=== PATIENT | female | born 1960 | race Caucasian/White ===

== ENCOUNTER → 2022-01-28 15:01 | Outpatient (CLI) | payer BC, SELFPAY ==
--- NOTE | ~2022-01-28 | XR_ITS ---
EXAMINATION: XR foot LT 2V INDICATION: Left foot pain TECHNIQUE: Two views of the left foot are obtained. COMPARISON: None available FINDINGS: There is an 18 mm linear metallic foreign body in the plantar soft tissues of the foot proj ecting near the fourth metatarsophalangeal joint. There is no fracture. Bone alignment is normal. The re are plantar and posterior calcaneal enthesophytes. IMPRESSION: 1. Linear metallic foreign body in the plantar soft tissues of the foot adjacent to the fourth metata rsophalangeal joint. Reviewed, dictated and finalized at location A. IMPRESSION: 1. Linear metallic foreign body in the plantar soft tissues of the foot adjacen t to the fourth metatarsophalangeal joint.
== END ==
PROVIDERS: PCP Family Medicine; Visit Provider Family Medicine
DX: M79.672 Pain in left foot (principal); W45.8XXA Other foreign body or object entering through skin, initial encounter
CPT/HCPCS: 73620

== ENCOUNTER 2022-02-11 01:50 | Day surgery (SDC) | payer BC, SELFPAY ==
[2022-02-03 12:58] VITALS: BMI 27.1
--- NOTE | 2022-02-03 13:11 | PC.NURSE ---
Report to the Outpatient Waiting Room, entrance under the green pavilion located off [facility], at time 1000 on date 02/11/22. OR Time: 1200. Time changes happen often and if your time is changed the preop area will call you the afternoon before. - You and your visitor will be asked to self-screen and do not enter if you have any COVID symptoms. - Only one visitor and NO children visitors are allowed at this time. - The patient visitor is requested to leave or wait in car when not with patient due to restrictions. - A mask is required within the hospital. Patients may have clear liquids (water, carbonated beverages, clear teas, apple juice) until 3 hours prior to surgery with a maximum of 20 ounces. - No food from midnight until time of surgery Take the following medications with a SIP of water the morning of surgery: LEVOTHYROXINE Medications to discontinue per physician: N/A Date to take last dose: N/A Please no make-up, nail albanian, hairspray, perfume, deodorant, or body powder the day of surgery. No jewelry (including any body piercings) or valuables the day of surgery, leave them at home. Please take a shower or bath the night before, or the morning of, surgery with an antibacterial soap. Wear comfortable, loose fitting clothing. - Jewelry must be removed prior to entering the operating room. Rings and piercings that are not removed may be cut off. - The hospital will not accept responsibility for valuables. - Please leave all valuables, including medications, at home the day of surgery. If you are going home after surgery, a licensed otr owner operator truck driver must drive you home. - NO public transportation without another adult. - We recommend that an adult stay with you for 24 hours following discharge. - We also recommend that you do not drive, make important decision, drink alcoholic beverages, or take any drugs that were not prescribed by your health care provider for at least 24 hours after your discharge time. Follow any additional instructions given to you from your surgeon. If you or anyone in your household have experienced Covid symptoms in the past week, please notify your surgeon or the nurse liaison at the phone number below for possible testing. Telephone instructions given to PT - DEONDRE WALDRON and asked if any additional questions and then verbalized understanding. Patient advised to call surgeon office or pre surgery nurse liaison [phone] if any additional questions.
--- NOTE | 2022-02-10 13:45 | P.PNAN_ITS ---
Anes - Initial Pre Proc Eval Procedure: Operation Date: 02/11/22 07:30 Proposed Procedures p Removal Foreign Body Left Foot - Toney Lance JR, MD Date/Time: 02/10/22 13:45 Surgeon: Toney Lance JR, MD Pre Op Diagnosis: FB left foot Patient Data Age: 62 Gender: F Height: 1.57 m Weight: 67.13 kg Allergies Allergy/AdvReac Type Severity Reaction Status Date / Time No Known Allergies Allergy Mild Unverified 02/03/22 12:57 Home Medications Medication Instructions Recorded Confirmed Type omeprazole 20 mg tablet,delayed 20 mg PO DAILY 10/15/21 02/03/22 History release levothyroxine 88 mcg tablet 88 mcg PO DAILY 02/03/22 02/03/22 History (Euthyrox) Results Review: All pre-operative results and documents have been reviewed as part of the pre- operative evaluation. [facility] Past Medical History Medical History GERD (gastroesophageal reflux disease) History of lung cancer History of thyroid cancer Hypothyroidism Surgical History Surgical History (Updated 02/03/22 @ 08:27 by Javier Rodriguez MD) History of hysterectomy Status post partial lobectomy of lung partial RLL Social History Social History Smoking status: Never smoker Second hand tobacco smoke exposure: No Alcohol intake: never Substance use: never Substance use type: does not use Living arrangements: with family Gender identity (if verbalized by the patient): Female Spiritual care concerns: No Anes - Eval Final PreProcedure Day of Procedure 02/10/22 13:45 Results Review: All pre-operative results and documents have been reviewed as part of the pre- operative evaluation. Informed Consent: The patient's anesthetic plan and its attendant risks and benefits were discussed with the patient/family/POA. Questions were solicited and answers provided to the satisfaction of the patient/family/POA.
--- NOTE | ~2022-02-11 | XR_ITS ---
EXAMINATION: XR surgery orthopedic DATE: 02/11/2022 08:03 INDICATION: Foreign body removal from the left foot TECHNIQUE: 3 fluoroscopic images of the left foot were obtained during procedure performed by Dr. Sebastien obrien. Radiologist was not present for the imaging or procedure. The amount of fluoroscopy time used during this procedure was 0.1 minutes. COMPARISON: Left foot radiographs dated 01/28/2022 FINDINGS: Initial 2 images demonstrate a hemostat marking the site of a linear metallic foreign body in the sof t tissues plantar to the fourth metatarsophalangeal joint. Final image demonstrates removal of the fo reign body. Visualized bones are unremarkable with normal alignment, no fracture normal joint spaces. IMPRESSION: 1. Fluoroscopy utilized for removal of a metallic foreign body from the left forefoot. See procedure note for further detail. Reviewed, dictated and finalized at location B. IMPRESSION: 1. Fluoroscopy utilized for removal of a metallic foreign body from the left fo refoot. See procedure note for further detail.
[2022-02-11 06:24] VITALS: BP 148/79; PULSE 91; RESP 16; TEMP 36.7; O2SAT 98
--- NOTE | 2022-02-11 06:50 | WPDANESEPPF ---
Anes - Initial Pre Proc Eval Procedure: Operation Date: 02/11/22 07:30 Proposed Procedures p Removal Foreign Body Left Foot - Toney Lance JR, MD Date/Time: 02/11/22 06:50 Surgeon: Toney Lance JR, MD Pre Op Diagnosis: FB left foot Patient Data Age: 62 Gender: F Height: 1.57 m Weight: 67.13 kg Allergies Allergy/AdvReac Type Severity Reaction Status Date / Time No Known Allergies Allergy Mild Unverified 02/03/22 12:57 Home Medications Medication Instructions Recorded Confirmed Type omeprazole 20 mg tablet,delayed 20 mg PO DAILY 10/15/21 02/03/22 History release levothyroxine 88 mcg tablet 88 mcg PO DAILY 02/03/22 02/03/22 History (Euthyrox) Patient hx anesthesia problems: none Family hx anesthesia problems: none Results Review: All pre-operative results and documents have been reviewed as part of the pre-operative evaluation. [facility] Past Medical History Medical History GERD (gastroesophageal reflux disease) History of lung cancer History of thyroid cancer Hypothyroidism Surgical History Surgical History (Updated 02/11/22 @ 06:50 by Sathya Estrada MD) History of hysterectomy History of lumbar surgery Status post partial lobectomy of lung partial RLL Social History Social History Smoking status: Never smoker Second hand tobacco smoke exposure: No Alcohol intake: never Substance use: never Substance use type: does not use Living arrangements: with family Gender identity (if verbalized by the patient): Female Spiritual care concerns: No Anes - Eval Final PreProcedure Day of Procedure 02/11/22 06:50 Patient weight: overweight Heart: regular rate and rhythm Lungs: clear to auscultation Airway: Mallampati scale class II Neurological: alert and oriented Last oral intake: >/= 8 hours ASA classification: III Emergent: no Anesthesia type and monitoring: general GIVS and standard monitoring Results Review: All pre-operative results and documents have been reviewed as part of the pre-operative evaluation. Informed Consent: The patient's anesthetic plan and its attendant risks and benefits were discussed with the patient/family/POA. Questions were solicited and answers provided to the satisfaction of the patient/family/POA.
--- NOTE | 2022-02-11 07:12 | WPDHPUPDATE1 ---
History and Physical Update Update Date/Time: 02/11/22 07:12 History and Physical has been reviewed, including an updated exam of the patient. There are NO changes in the patient's condition. Risks, benefits, and alternatives have been discussed and questions answered. Patient agrees to proceed with procedure.
[2022-02-11] MEDS: LACTATED RINGERS 1,000 ML 30 ML IV CONT (07:19)
[2022-02-11] MEDS: ceFAZolin 2 GM/D5W 50 ML 2 GM/50 ML BAG IVPB (07:28)
[2022-02-11 08:10] VITALS: BP 114/71; PULSE 74; RESP 12; O2SAT 96
[2022-02-11] MEDS: LIDOCAINE HCL 2% LOCAL INJ 20 ML VIAL 10 ML INFILTRATE (08:11)
--- NOTE | 2022-02-11 08:35 | W.PM.PROC2 ---
Procedure Note - Detailed Date of Procedure 02/11/22 Pre-op Diagnosis Painful foreign body left foot Post-op Diagnosis Same Procedure Performed Removal of foreign body left foot Surgeon Toney Lance JR, DPM Anesthesia MAC and Local Indications Painful left foot foreign body Findings Dark discoloration noted to the plantar left forefoot along the entry point. Description of Procedure Under mild sedation, the patient was brought to the operating room, placed on the operating table in the supine position. A pneumatic ankle tourniquet was placed about the patient's ankle. Following monitored anesthesia, I performed a tibial nerve Block. The foot was then scrubbed, prepped, and draped in the usual aseptic manner. An Esmarch bandage was then used to examine the patient's foot and pneumatic ankle tourniquet was then inflated. Surgery began in the following manner. Attention was directed to the plantar aspect of the left forefoot superficial to the fourth metatarsal head of the foot where a linear 2cm incision was made along a noted entry point. The incision was continued deep down through the subcutaneous tissues using sharp and blunt dissection. All bleeders were cauterized as necessary. I continued my dissection deeper where there was brown discoloation of the subcutaneus structures with scant purulence noted. I did take a deep wound culture swab and sent for aerobic and anaerobic culture and sensitivity. I utilized fluroscopy and a curved hemostat to triangulate and identify a large 2cm fractured sewing needle. The piece was removed in toto. Fluoroscopy was used to make sure that no radiodense metalic fragments were noted. No remaining necrotic tissue was noted, no other abscess was noted. The wound only extended to the subcutaneous layer only. I did use copious amounts of sterile saline to thouroghly flush the affected area. Next, I reapproximated the skin with 3.0 Prolene in simple inturruped suture fashion technique. I dressed the incision with adaptic, 4x4 gauze, Kerlix and Coban . The pneumatic ankle tourniquet was then deflated and a prompt hyperemic response noted to all digits of the affected foot. A surgical shoe was then applied. The patient did very well with the procedure and the anesthesia. The patient was transferred to the recovery room with vital signs stable and vascular status intact to all toes of the affected foot. The patient will follow the following instructions: 1. Keep the dressing clean, dry, and intact. Use a cast protector bag with showers. 2. The patient should use a surgical shoe for ambulation postoperatively. 3. The patient should be on bedrest with bathroom privileges and elevate the affected foot when at rest. 4. I, Dr. Lance, will change the dressing one week post op. 5. Call Dr. Lance' office if problems arise. Estimated Blood Loss 1 Pathology Yes (wound culture swab taken and sent for aerobic and anaerobic culture and sensitivity and gram stain) Disposition Same day
[2022-02-11 08:40] VITALS: BP 106/65; PULSE 66; RESP 16
== END 2022-02-11 09:20 | disposition home or self-care (01) ==
PROVIDERS: PCP Family Medicine; Visit Provider Podiatrist Foot & Ankle Surgery
PROC: (CPT 28192; principal; 2022-02-11 07:30)
DX: M79.5 Residual foreign body in soft tissue (principal); K21.9 Gastro-esophageal reflux disease without esophagitis; E03.9 Hypothyroidism, unspecified; Z85.850 Personal history of malignant neoplasm of thyroid; Z85.118 Personal history of other malignant neoplasm of bronchus and lung; Z90.2 Acquired absence of lung [part of]
CPT/HCPCS: 28192; 87070; 87075; 87205; 99199; J0690; J1100; J2250; J2405; J2704; J3010; J7120

== ENCOUNTER 2023-05-02 10:32 | Emergency (ER) | payer BC, SELFPAY ==
--- NOTE | ~2023-05-02 | CT_ITS ---
EXAMINATION: CT soft tissue neck w con DATE: 05/02/2023 12:53 INDICATION: Tonsillar abscess. TECHNIQUE: Computed tomography (CT) of the neck was performed with 75 mL Omnipaque-350 intravenous co ntrast. Automated exposure control and iterative reconstruction technique were employed. The dose-brian gth product was 420.59 mGy-cm. COMPARISON: None FINDINGS: There is mild scarring at right lung apex. The palatine tonsils are enlarged. There is ill- defined low attenuation in right palatine tonsil measuring 2.3 x 2.0 cm. There are no pathologically enlarged lymph nodes. There is mild mucosal thickening in the paranasal sinuses. The mastoid air cell s are normal. There are changes of thyroidectomy. There is mild cerebral spondylosis. IMPRESSION: 1. Enlarged palatine tonsils. Ill-defined low-attenuation in right palatine tonsil may be phlegmon or early abscess. It is not clear if this material would be drainable. Reviewed, dictated and finalized at location A. P POLISHER IMPRESSION: 1. Enlarged palatine tonsils. Ill-defined low-attenuation in right palatine ton donnie may be phlegmon or early abscess. It is not clear if this material would be drainable.
[2023-05-02 11:26] VITALS: BP 142/78; PULSE 112; RESP 17; TEMP 36.3; O2SAT 99
--- NOTE | 2023-05-02 11:30 | ED.DENTAL ---
HPI - Dental/Oral General Chief complaint: Dental/Oral <Samara Macario APRN - Last Filed: 05/02/23 18:18> Stated complaint: Tonsilar abcess <Samara Macario APRN - Last Filed: 05/02/23 18:18> Time Seen by Provider: 05/02/23 11:30 <Samara Macario APRN - Last Filed: 05/02/23 18:18> Source: patient and family (spouse) <Samara Macario APRN - Last Filed: 05/02/23 18:18> Mode of arrival: ambulatory <Samara Macario APRN - Last Filed: 05/02/23 18:18> Limitations: no limitations <Samara Macario APRN - Last Filed: 05/02/23 18:18> History of Present Illness HPI Narrative: Patient is a 63-year-old female with past history as noted below who presents emergency department today for worsening pain and swelling of her right tonsil, drinking even water is painful, hasn't been eating. symptoms have been present for a 3-5 days now, she started having worsening swelling/pain going all around her right side yesterday. States she was seen in urgent care sent here due to concern of a tonsillar abscess. She states she had been seen at an Urgent Care earlier in the week and tested for COVID flu RSV as well as strep that were negative. At the Urgent Care today they test her for strep it was negative.denies CP, SOB, wheezing, fever, chills, nausea, vomiting. <Samara Macario APRN - Last Filed: 05/02/23 18:18> Related Data Home medications: Home Medications Medication Instructions Recorded Confirmed omeprazole 20 mg tablet,delayed 20 mg PO DAILY 10/15/21 02/03/22 release levothyroxine 88 mcg tablet 88 mcg PO DAILY 02/03/22 02/03/22 (Euthyrox) <Samara Macario APRN - Last Filed: 05/02/23 18:18> Allergies/adverse reactions: Allergies Allergy/AdvReac Type Severity Reaction Status Date / Time No Known Allergies Allergy Mild Verified 05/02/23 11:28 <Samara Macario APRN - Last Filed: 05/02/23 18:18> Review of Systems Review of Systems: CONSTITUTIONAL: Denies fever, chills, or sweats. EYES: Denies visual changes, redness, or discharge. ENT:+ right tonsil swelling/throat pain, difficulty swallowing. CARDIOVASCULAR: Denies chest pain, palpitations, or edema. RESPIRATORY: +cough. denies wheezing or dyspnea. GASTROINTESTINAL: Denies abdominal pain, nausea, vomiting, or diarrhea. SKIN: Denies rash or itching. MUSCULOSKELETAL: Denies back pain, joint pain, or myalgia. NEUROLOGIC: Denies headache, numbness, or weakness. PSYCHIATRIC: Denies anxiety or depression. <Samara Macario APRN - Last Filed: 05/02/23 18:18> All systems reviewed & are unremarkable except as noted in HPI and below <Samara Macario APRN - Last Filed: 05/02/23 18:18> [facility] Past Medical History Medical History: Medical History (Updated 05/02/23 @ 17:15 by Samara Macario APRN) Jackie's gland hyperplasia of duodenum GERD (gastroesophageal reflux disease) History of lung cancer History of thyroid cancer Hypothyroidism <Samara Macario APRN - Last Filed: 05/02/23 18:18> Surgical History Surgical History: Surgical History (Updated 02/11/22 @ 06:50 by Sathya Estrada MD) History of hysterectomy History of lumbar surgery Status post partial lobectomy of lung partial RLL <Samara Macario APRN - Last Filed: 05/02/23 18:18> Social History Social History: Social History Smoking status: Never smoker Second hand tobacco smoke exposure: No Alcohol intake: never Substance use: never Substance use type: does not use Living arrangements: with family Occupation/Education: retired Gender identity (if verbalized by the patient): Female Sexual Orientation (if Verbalized by the Patient): Straight or Heterosexual Spiritual care concerns: No <Samara Macario APRN - Last Filed: 12/31/23 18:18> Exam Narrative: GENERAL: Well-appearing, well-nourished, and in no acute distress. speaking in full sentences, controlling secr
[2023-05-02 11:49] LABS: Basophils Absolute Auto 0.1 K/mm3 (0.0-0.1); Basophils Percent Auto 0.3 % (0.2-1.2); Eosinophils Percent Auto 0.1 % (0-4.4); Hematocrit 44.9 % (37.0-47.0); Hemoglobin 14.2 g/dL (12.0-15.0); Immature Granulocyte Percent A 0.6 % (0-0.5); Lymphocytes Absolute Auto 1.84 K/mm3 (0.9-3.2); Lymphocytes Percent Auto 11.2 % (18.3-44.2); Mean Corpuscular HGB Conc 31.6 g/dl (32-36); Mean Corpuscular Volume 91.8 fl (80-100); Mean Platelet Volume 10.1 fl (7.4-10.4); Monocytes Absolute Auto 1.4 K/mm3 (0.1-0.6); Monocytes Percent Auto 8.7 % (2.6-8.5); Neutrophils Percent Auto 79.1 % (45.5-73.1); Platelet Count Result 274 k/mm3 (150-375); Red Blood Count 4.89 M/mm3 (4.2-5.4); White Blood Count 16.4 K/mm3 (4.5-10.0)
[2023-05-02 12:02] LABS: Alanine Aminotransferase 21 U/L (6-35); Albumin Level 4.3 g/dL (3.5-5.1); Alkaline Phosphatase 77 U/L (38-126); Anion Gap 11 mmol/L (8-16); Aspartate Amino Transferase 28 U/L (14-36); Bilirubin,Total 0.8 mg/dL (0.2-1.3); Blood Urea Nitrogen 7 mg/dL (7-17); Calcium 9.2 mg/dL (8.4-10.2); Carbon Dioxide 23 mmol/L (22-30); Chloride 101 mmol/L (98-107); Estimated CRCL calculation 107 ml/min; Estimated Glomerular Filt Rate > 60; Glucose 113 mg/dL (65-110); Sodium 135 mmol/L (137-145)
[2023-05-02 12:21] LABS: Strep Group A RT-PCR NOT DETECTED (Negative)
[2023-05-02 12:30] LABS: Lactic Acid Reflex 1.2 mmol/L (0.7-2.0)
[2023-05-02] MEDS: SODIUM CHLORIDE 0.9% IV 1,000 ML 999 ML IV CONT (13:10)
[2023-05-02] MEDS: MORPHINE SULFATE (*CRX) 4 MG/ML INJ IV PUSH ×2 (13:10→17:34)
[2023-05-02] MEDS: AMPICILLIN SULB 3 GM/NS 100 ML 3 GM/100 ML VIAL IVPB (13:11)
[2023-05-02 13:13] VITALS: BP 140/69; PULSE 104; RESP 17; O2SAT 95
[2023-05-02 17:06] VITALS: BP 140/83; PULSE 110; RESP 18; O2SAT 97
[2023-05-02] MEDS: SODIUM CHLORIDE 0.9% IV 1,000 ML 100 ML IV CONT (17:34)
== END 2023-05-02 18:25 | disposition short-term general hospital (02) ==
PROVIDERS: Emergency Provider Nurse Practitioner; PCP Family Medicine
DX: J36 Peritonsillar abscess (principal); J35.1 Hypertrophy of tonsils; K21.9 Gastro-esophageal reflux disease without esophagitis; E03.9 Hypothyroidism, unspecified; Z85.118 Personal history of other malignant neoplasm of bronchus and lung; Z85.850 Personal history of malignant neoplasm of thyroid
CPT/HCPCS: 36415; 70491; 80053; 83605; 85025; 87040; 87651; 96365; 96375; 96376; 99285; J0295; J1100; J2270; J7030; Q9967

== ENCOUNTER 2024-09-19 10:51 | Outpatient (CLI) | payer BC, SELFPAY ==
--- NOTE | ~2024-09-19 | CT_ITS ---
EXAMINATION: CT BRAIN W/O DATE: 09/19/2024 11:34 INDICATION: Head trauma. Patient fell one month ago with lump on top of head. TECHNIQUE: Computed tomography (CT) of the head was performed without and with 100 cc Omnipaque 350 i ntravenous contrast. The dose-length product was 1199.14 mGy-cm. Automated exposure control and itera tive reconstruction technique were employed. COMPARISON: No prior studies for comparison. FINDINGS: Normal brain parenchymal volume for age. Normal mccall-white differentiation. No acute intrac ranial hemorrhage, infarction, mass or mass effect. No abnormal contrast enhancement. No ventriculomegaly or midline shift. Midline sagittal images demonstrate a normal corpus callosum, c raniovertebral junction and sella turcica. Basilar cisterns are patent. Paranasal sinuses and mastoids are pneumatized. No depressed skull fractures. IMPRESSION: 1. No acute intracranial abnormality. Reviewed, dictated and finalized at location B.
[2024-09-19 11:11] LABS: Estimated Glomerular Filt Rate > 60
== END 2024-09-19 10:52 | disposition home or self-care (01) ==
LOC: MICIMG 10:52
PROVIDERS: PCP Family Medicine; Visit Provider Physician Assistant
DX: M89.8X8 Other specified disorders of bone, other site (principal); S09.90XA Unspecified injury of head, initial encounter; X58.XXXA Exposure to other specified factors, initial encounter
CPT/HCPCS: 70470; Q9967